=== PATIENT | male | born 1970 | race Caucasian/White ===

== ENCOUNTER 2020-06-09 11:58 | Emergency (ER) | payer OTHER ==
[~2020-06-09] VITALS: Ht 177.8 cm; Wt 90.7 kg
[2020-06-09] MEDS ORDERED: KETO10TA2 PO (15:11)
[2020-06-09] MEDS ORDERED: NORFLEX100MG PO (15:11)
== END 2020-06-09 15:35 | disposition home or self-care (01) ==
LOC: ER 11:58
DX: M54.5 Low back pain (principal)